=== PATIENT | male | born 1975 | race Caucasian/White ===

== ENCOUNTER 2016-03-28 08:48 | Emergency (ER) | payer BC ==
[~2016-03-28] VITALS: Ht 182.9 cm; Wt 100.9 kg
[~2016-03-28 08:48] MED LIST: NO HOME MEDS; PERCOCET 5/31 TABLET PO
[2016-03-28 09:23] LABS: HEMATOCRIT 46.5 % (38.0-50.0); MCH 29.7 PG (29.0-34.0); MCHC 33.8 G/DL (30.0-36.0); MCV 88.1 FL (86-99); MEAN PLAT.VOLUME 9.9 uM^3 (9.0-12.4); PLATELET COUNT 242 K/uL (156-360); RBC DIS.WIDTH-CV 12.9 % (11.8-14.6); RED BLOOD COUNT 5.28 M/uL (4.00-5.50)
[2016-03-28 09:38] LABS: CHLORIDE 108 mEq/L (99-109); SODIUM 140 mEq/L (136-147)
[2016-03-28 09:39] LABS: GLUCOSE 92 mg/dL (70-99)
[2016-03-28 09:41] LABS: ANION GAP 10 MEQ/L (2-14)
[2016-03-28 09:43] LABS: GFR ESTIMATE (CALCULATED) > 59 mL/min/
[2016-03-28 09:44] LABS: UREA NITROGEN (BUN) 13 mg/dL (9-23)
[2016-03-28 10:48] VITALS: BP 146/92
== END 2016-03-28 10:49 | disposition home or self-care (01) ==
LOC: EME 08:48
DX: K40.90 Unilateral inguinal hernia, without obstruction or gangrene, not specified as recurrent (principal)
CPT/HCPCS: 80048; 81003; 85027; 99281; 99283

== ENCOUNTER 2016-04-15 05:10 | Day surgery (SDC) | payer BC ==
[~2016-04-15] VITALS: Ht 167.6 cm; Wt 97.0 kg
[2016-04-15 05:53] VITALS: BP 129/64
[2016-04-15] MEDS ORDERED: COLACE100 MG PO (09:52)
[2016-04-15] MEDS ORDERED: NICOTINE PATCH1 EAC2 TD (09:52)
[2016-04-15] MEDS ORDERED: PERCOCET 5/31 TABLET PO (09:52)
[2016-04-15 10:30] VITALS: BP 145/87
== END 2016-04-15 11:53 | disposition home or self-care (01) ==
LOC: SDC
PROC: 0YUA4JZ Supplement Bilateral Inguinal Region with Synthetic Substitute, Percutaneous Endoscopic Approach (ICD-10-PCS; principal; 2016-04-15)
DX: K40.90 Unilateral inguinal hernia, without obstruction or gangrene, not specified as recurrent (principal); F17.200 Nicotine dependence, unspecified, uncomplicated; Z80.3 Family history of malignant neoplasm of breast
CPT/HCPCS: C1727; C1781; J0131; J0690; J1100; J1170; J2250; J2405; J2710; J3010

== ENCOUNTER 2016-08-14 23:27 | Emergency (ER) | payer BC ==
[~2016-08-14] VITALS: Ht 182.9 cm; Wt 97.6 kg
[~2016-08-14 23:27] MED LIST changes: +COLACE100 MG PO; +NICOTINE PATCH1 EAC2 TD
[2016-08-15] MEDS ORDERED: ERYTHROMYC1 APPLICAT BOTH EYES (02:11)
[2016-08-15 02:38] VITALS: BP 157/99
== END 2016-08-15 02:39 | disposition home or self-care (01) ==
LOC: EME 23:27
DX: S05.02XA Injury of conjunctiva and corneal abrasion without foreign body, left eye, initial encounter (principal); W22.8XXA Striking against or struck by other objects, initial encounter; Y93.89 Activity, other specified
CPT/HCPCS: 99281; 99283